=== PATIENT | female | born 1945 | race Caucasian/White ===

== ENCOUNTER 2016-09-10 12:10 | Emergency (ER) | payer MEDICARE ==
[~2016-09-10] VITALS: Ht 152.4 cm; Wt 74.0 kg
[~2016-09-10 12:10] MED LIST: HYDR473S47 PO; LEVO750T25 PO
[2016-09-10 12:15] VITALS: Ht 152.4 cm; Wt 74.0 kg
[2016-09-10] MEDS ORDERED: ONDANSETRON 4 MG INJ IV STA (13:10)
[2016-09-10] MEDS ORDERED: SOD CHLORIDE 0.9% 1,000 ML IV STA (13:10)
[2016-09-10] MEDS ORDERED: MECLIZINE 12.5 MG TAB PO ONE (13:30)
[2016-09-10 13:43] LABS: ADD SCAN DIFF NO
[2016-09-10 13:47] LABS: BASOPHIL # 0.1 10^3/ul (0.0-0.1); BASOPHILS % 0.6 % (0.0-2.0); EOSINOPHILS # 0.1 10^3/ul (0.0-0.5); EOSINOPHILS % 1.3 % (0.0-7.0); HEMATOCRIT 38.6 % (37.0-47.0); HEMOGLOBIN 13.5 g/dl (12.0-16.0); LYMPHOCYTES # 2.6 10^3/ul (0.8-2.9); MEAN CORPUSCULAR HEMOGLOBIN 31.7 pg (29.0-33.0); MEAN CORPUSCULAR VOLUME 90.6 fl (82.0-101.0); MEAN PLATELET VOLUME 10.2 fl (7.4-10.4); MONOCYTE # 0.6 10^3/ul (0.3-0.9); MONOCYTES % 5.3 % (0.0-11.0); NEUTROPHIL # 7.3 10^3/ul (1.6-7.5); NEUTROPHILS % 68.3 % (39.0-77.0); PLATELET COUNT 207 10^3/UL (140-415); RED BLOOD COUNT 4.26 10^6/ul (4.20-5.40); RED CELL DISTRIBUTION WIDTH 12.5 % (11.5-14.5); WHITE BLOOD COUNT 10.7 10^3/ul (4.8-10.8)
[2016-09-10 14:09] LABS: ALBUMIN 5.1 g/dl (3.3-4.9); ALBUMIN/GLOBULIN RATIO 1.5; BILIRUBIN,INDIRECT 0.4 mg/dl (0-1.1); BILIRUBIN,TOTAL 0.4 mg/dl (0.2-1.3); CALCIUM 9.9 mg/dl (8.4-10.2); CREATININE 0.66 mg/dl (0.44-1.00); POTASSIUM 4.1 mmol/L (3.5-5.1); TOTAL PROTEIN 8.5 g/dl (6.1-8.1)
--- NOTE | 2016-09-10 14:46 | RADRPT ---
PROCEDURE: CT Brain without. CLINICAL INDICATION: Vertigo. TECHNIQUE: A CT of the brain was performed on multidetector high-resolution CT scanner utilizing a xial sections from the skull base through the vertex without contrast. The scan was reviewed in sof t tissue brain and high frequency resolution bone algorithm windows. Images were reviewed on a high -resolution PACS workstation. One or more the following does reduction techniques were utilized: Aut omated exposure control, adjustment of the mA/ or kV according to patient's size, or use of iterativ e reconstruction technique. The exam CTDI = 41.44 mGy and the DLP = 630.2 mGy-cm. COMPARISON: None available. FINDINGS: The ventricles and sulci are mildly prominent indicative of volume loss. There is no intracranial he morrhage, mass effect or midline shift. No abnormal intra-axial or extra-axial fluid collections ar e seen. The mcdonald/white matter differentiation is preserved. There are mild scattered foci of hypoattenuation in the white matter, which are nonspecific in etiol ogy but likely reflect chronic small vessel ischemic changes. There are mild intracranial vascular calcifications consistent with atherosclerosis. The visualized paranasal sinuses are essentially emanuel ar. IMPRESSION: 1. No acute intracranial hemorrhage, transcortical infarction or mass effect. 2. Mild intracranial atherosclerosis and chronic small vessel ischemic changes. 3. Mild generalized cerebral volume loss. RPTAT: HFN .Matias Yanez MD, MD Date Time Electronically viewed and signed by .Matias Yanez MD, MD on 09/10/2016 14:46 .N/
[2016-09-10] MEDS ORDERED: AMLODIPINE 10 MG TAB PO ONE (17:00)
[2016-09-10] MEDS ORDERED: LABETALOL HCL 20MG INJ IV ONE (17:00)
[2016-09-10] MEDS ORDERED: MECL-77 PO (17:45)
[2016-09-10] MEDS ORDERED: ONDA4TAB14 PO (17:45)
[2016-09-10] MEDS ORDERED: AMLO-147 PO (17:45)
--- NOTE | 2016-09-10 18:00 | ERD ---
ER Documentation Chief Complaint Date/Time DATE: 09/10/16 TIME: 17:52 Chief Complaint DIZZINESS WITH HIGH BLOOD PRESSURE HPI This 71-year-old female comes emergency room for vertigo. She has a sense of the room spinning and wobbly which gives her nausea. She has not vomited yet. She has no fever and chills. She also states that her blood pressures been much higher than normal. She does not have any headache or chest pain. She has no focal weakness. His symptoms been going on for 3 days. She is never had a sensation like this before. ROS All systems reviewed and are negative except as per history of present illness. Medications Home Meds Active Scripts Amlodipine Besylate* (Amlodipine Besylate*) 10 Mg Tablet, 10 MG PO DAILY, #15 TAB Prov:ZAIDA PALMA DO 09/10/16 Ondansetron (Ondansetron Odt) 4 Mg Tab.rapdis, 4 MG PO Q6H Y for NAUSEA AND/OR VOMITING, #10 TAB Prov:LOUIEZAIDA DO 09/10/16 Meclizine Hcl* (Meclizine Hcl*) 25 Mg Tablet, 25 MG PO Q8H Y for DIZZINESS, #20 TAB Prov:LOUIEZAIDA DO 09/10/16 Hydrocodone/Homatropine Mbr* (Hycodan* Liq) 5 Ml Syrup, 5 ML PO Q4H Y for COUGH , #120 ML Prov:LATASHA MAURICE PA-C 06/02/15 Levofloxacin* (Levaquin*) 750 Mg Tablet, 750 MG PO DAILY for 5 Days, TAB Prov:LATASHA MAURICE PA-C 06/02/15 Allergies Allergies: Coded Allergies: No Known Allergy (Unverified , 06/02/15) PMhx/Soc History of Surgery: Yes (C SECTION ) Anesthesia Reaction: No Hx Neurological Disorder: No Hx Respiratory Disorders: No Hx Cardiac Disorders: Yes (HTN ) Hx Psychiatric Problems: No Hx Miscellaneous Medical Probl: Yes (DM ) Hx Alcohol Use: No Hx Substance Use: No Hx Tobacco Use: No Smoking Status: Unknown if ever smoked Physical Exam Vitals Vital Signs Date Time Temp Pulse Resp B/P Pulse Ox O2 Delivery O2 Flow Rate FiO2 09/10/16 14:18 177/66 09/10/16 12:15 98.0 73 18 197/79 98 Physical Exam Const: [] Mild distress Head: Atraumatic Eyes: Normal Conjunctiva, EOMI, PRL ENT: Normal External Ears, Nose and Mouth. Tympanic membranes within normal limits Neck: Full range of motion..~ No meningismus. Resp: Clear to auscultation bilaterally Cardio: Regular rate and rhythm, no murmurs Abd: Soft, non tender, non distended. Normal bowel sounds Skin: No petechiae or rashes Back: No midline or flank tenderness Ext: No cyanosis, or edema Neur: Awake and alert and oriented 3, no focal deficits, cranial nerves II through XII intact, cerebellar finger to nose intact Psych: Normal Mood and Affect Result Diagram: 09/10/16 1336 09/10/16 1336 Results 24 hrs Laboratory Tests Test 09/10/16 13:36 White Blood Count 10.710^3/ul Red Blood Count 4.2610^6/ul Hemoglobin 13.5g/dl Hematocrit 38.6% Mean Corpuscular Volume 90.6fl Mean Corpuscular Hemoglobin 31.7pg Mean Corpuscular Hemoglobin Concent 35.0g/dl Red Cell Distribution Width 12.5% Platelet Count 07402^3/UL Mean Platelet Volume 10.2fl Neutrophils % 68.3% Lymphocytes % 24.0% Monocytes % 5.3% Eosinophils % 1.3% Basophils % 0.6% Nucleated Red Blood Cells % 0.0/100WBC Neutrophils # 7.310^3/ul Lymphocytes # 2.610^3/ul Monocytes # 0.610^3/ul Eosinophils # 0.110^3/ul Basophils # 0.110^3/ul Nucleated Red Blood Cells # 0.010^3/ul Sodium Level 143mmol/L Potassium Level 4.1mmol/L Chloride Level 98mmol/L Carbon Dioxide Level 25mmol/L Anion Gap 24 Blood Urea Nitrogen 15mg/dl Creatinine 0.66mg/dl Glucose Level 258mg/dl Calcium Level 9.9mg/dl Total Bilirubin 0.4mg/dl Direct Bilirubin 0.00mg/dl Indirect Bilirubin 0.4mg/dl Aspartate Amino Transf (AST/SGOT) 27IU/L Alanine Aminotransferase (ALT/SGPT) 31IU/L Alkaline Phosphatase 102IU/L Total Protein 8.5g/dl Albumin 5.1g/dl Globulin 3.40g/dl Albumin/Globulin Ratio 1.50 Current Medications Medications (Trade) Dose Ordered Sig/Boaz Route PRN Reason Start Time Stop Time Status Last Admin Dose Admin Sodium Chloride (NS) 1,000 ml @ 1,000 mls/hr Q1H STAT IV 09/10/16 13:10 09/10/16 14:09 DC 09/10/16 13:39 Ondansetron HCl (Zofran Inj) 4 mg ONCE STAT IV 09/10/16 13:10 09/10/16 13:13 DC 09/10/16 13:39 Meclizine HCl (Antivert) 25 mg ONCE ONCE PO 09/10/16 13:30 09/10/16 13:31 DC 09/10/16 13:39 Labetalol HCl (Labetalol) 15 mg ONCE ONCE IV 09/10/16 17:00 09/10/16 17:01 DC 09/10/16 17:13 Amlodipine Besylate (Norvasc) 10 mg ONCE ONCE PO 09/10/16 17:00 09/10/16 17:01 DC 09/10/16 17:45 Procedures/MDM 71-year-old female with new onset vertigo. Vertigo is somewhat positional and believe it is peripheral cause. CT of the head was performed which shows no acute process. Patient had normal labs. I doubt acute coronary syndrome or cardiac dysfunction as cause of this. Patient was hydrated with normal saline given Antivert and Zofran. Symptoms are mostly resolved. She was concerned that her blood pressure is systolic kept approaching in CD 200 and diastolic 100. She was given 50 mg of labetalol as well as 10 mg of amlodipine prevent rebound hypertension. Going to discharge her with 10 mg amlodipine added to her regular regimen. Also discharging with Antivert and Zofran. Primary care follow-up and instructions to see an ENT doctor if the vertigo continues. Also copy of EKG include to take primary care doctor and obtain outpatient echocardiogram per EKG interpretation: Normal sinus rhythm rate of 62, normal axis, mild T-wave inversions in all precordial leads except for V1 would be suspicious for ischemia. personnel monitor interpretation: Normal sinus rhythm without arrhythmia Departure Diagnosis: Primary Impression: Uncontrolled hypertension Additional Impressions: Vertigo Hyperglycemia due to type 2 diabetes mellitus Condition: Stable Patient Instructions: Inner Ear Problems: Causes of Dizziness (Vertigo), Hypertension, Established, Out Of Control Additional Instructions: Llame al doctor MAANA y shasha marlin PADMINI PARA DENTRO DE 2-3 GROSSMAN. Consigue un referral para un ENT doctor si sigue el mareao. Dgale a la secretaria que nosotros le instruimos hacer esta padmini.Avise o llame si mays condicin se empeora antes de la padmini. Regresa aqui si peor o no mejor. ZAIDA PALMA DO Sep 10, 2016 18:00
[2016-09-10 18:24] VITALS: BP 187/98
== END 2016-09-10 18:25 | disposition home or self-care (01) ==
LOC: E/R 12:10
DX: I10 Essential (primary) hypertension (principal); E11.65 Type 2 diabetes mellitus with hyperglycemia; R11.0 Nausea
CPT/HCPCS: 70450; 80053; 85025; 93005; 96374; 96375; 99285; J2405; J7030